=== PATIENT | male | born 1975 | race Caucasian/White ===

== ENCOUNTER 2022-05-16 08:28 | Emergency (ER) | payer OTHER ==
[2022-05-16] MEDS ORDERED: Metoclopramide 10 MG Tab PO ONE (09:06)
[2022-05-16] MEDS ORDERED: Acetaminophen/oxyCODONE 325-5 MG Tab PO ONE (09:06)
[2022-05-16] MEDS ORDERED: Diphtheria,Pertussis(Acell),Tetanus Vaccine 0.5 ML Syringe IM ONE (09:07)
== END 2022-05-16 10:48 | disposition home or self-care (01) ==
LOC: JD.ED 08:28
DX: S62.630A Displaced fracture of distal phalanx of right index finger, initial encounter for closed fracture (principal); M10.9 Gout, unspecified; Z79.899 Other long term (current) drug therapy; Z23 Encounter for immunization; W23.1XXA Caught, crushed, jammed, or pinched between stationary objects, initial encounter
CPT/HCPCS: 73140; 90471; 90715; 99283; A9270; 99284